=== PATIENT | female | born 1950 | race Caucasian/White ===

== ENCOUNTER → 2023-09-11 07:56 | Outpatient (REF) | payer MEDICARE, OTHER, SELFPAY ==
[2023-09-11 09:58] LABS: Vitamin D, 25-OH*** 46.8 ng/mL (30-80)
[2023-09-11 10:11] LABS: TSH Reflex To Free T4 4.11 uIU/ml (0.47-4.68)
[2023-09-11 10:31] LABS: Vitamin B12 569 pg/ml (239-931)
[2023-09-11 12:51] LABS: ALT (SGPT) 38 U/L (0-35); AST (SGOT) 37 U/L (14-36); Albumin 4.6 g/dl (3.5-5.0); Alkaline Phosphatase 90 U/L (38-126); Blood Urea Nitrogen 20 mg/dl (7-17); Carbon Dioxide 27 mmol/L (22-30); Chloride 103 mmol/L (98-107); Glucose 83 mg/dl (70-99); Magnesium 2.2 mg/dl (1.6-2.3); Potassium 4.9 mmol/L (3.5-5.1); Sodium 135 mmol/L (135-145); Total Bilirubin 0.7 mg/dl (0.2-1.3); Total Protein 7.5 g/dl (6.3-8.2); eGFR > 60.00
== END ==
LOC: REG 07:56
PROVIDERS: ATTENDING PHYSICIAN Student in an Organized Health Care Education/Training Program
DX: R25.2 Cramp and spasm (principal)
CPT/HCPCS: 36415; 80053; 82306; 82607; 83735; 84443

== ENCOUNTER → 2023-10-11 08:29 | Outpatient (REF) | payer MEDICARE, OTHER, SELFPAY ==
[2023-10-11 09:31] LABS: ALT (SGPT) 27 U/L (0-35); AST (SGOT) 32 U/L (14-36); Alkaline Phosphatase 89 U/L (38-126); Direct Bilirubin 0.2 mg/dl (0.0-0.4); Total Bilirubin 0.7 mg/dl (0.2-1.3)
== END ==
LOC: REG 08:29
PROVIDERS: ATTENDING PHYSICIAN Student in an Organized Health Care Education/Training Program
DX: R79.89 Other specified abnormal findings of blood chemistry (principal)
CPT/HCPCS: 36415; 82247; 82248; 84075; 84450; 84460

== ENCOUNTER → 2023-12-06 09:32 | Outpatient (REF) | payer MEDICARE, OTHER, SELFPAY ==
[2023-12-06 10:59] LABS: ALT (SGPT) 55 U/L (0-35); AST (SGOT) 46 U/L (14-36); Albumin 4.4 g/dl (3.5-5.0); Alkaline Phosphatase 108 U/L (38-126); Blood Urea Nitrogen 20 mg/dl (7-17); Calcium 9.9 mg/dl (8.4-10.2); Carbon Dioxide 27 mmol/L (22-30); Chloride 101 mmol/L (98-107); Glucose 102 mg/dl (70-99); Glycohemoglobin (HgbA1c) 5.9 % (4.0-5.6); HDL Cholesterol 73 mg/dl; LDL Cholesterol, Calculated 62 mg/dl; Potassium 4.5 mmol/L (3.5-5.1); Sodium 136 mmol/L (135-145); Total Bilirubin 0.7 mg/dl (0.2-1.3); Total Cholesterol 148 mg/dl (50-199); Triglyceride 67 mg/dl (10-149); Very Low Density Lipoprotein 13 mg/dl (0-30); eGFR > 60.00
== END ==
LOC: REG 09:32
PROVIDERS: ATTENDING PHYSICIAN Student in an Organized Health Care Education/Training Program
DX: Z00.00 Encounter for general adult medical examination without abnormal findings (principal); E78.00 Pure hypercholesterolemia, unspecified; R73.01 Impaired fasting glucose
CPT/HCPCS: 36415; 80053; 80061; 83036

== ENCOUNTER → 2023-12-26 06:32 | Day surgery (SDC) | payer MEDICARE, OTHER, SELFPAY | LOC: GI 06:32 | PROVIDERS: ATTENDING PHYSICIAN Specialist | DX: Z12.11 Encounter for screening for malignant neoplasm of colon (principal); D12.2 Benign neoplasm of ascending colon; D12.3 Benign neoplasm of transverse colon; K57.30 Diverticulosis of large intestine without perforation or abscess without bleeding; R19.7 Diarrhea, unspecified; Z86.010 Personal history of colon polyps | CPT/HCPCS: 45385; 45380; 88305 ==

== ENCOUNTER → 2024-01-10 15:02 | Outpatient (REF) | payer MEDICARE, OTHER, SELFPAY | LOC: WDC 15:02 | PROVIDERS: ATTENDING PHYSICIAN Student in an Organized Health Care Education/Training Program | DX: Z12.31 Encounter for screening mammogram for malignant neoplasm of breast (principal) | CPT/HCPCS: 77063; 77067 ==

== ENCOUNTER → 2024-01-28 08:06 | Outpatient (REF) | payer MEDICARE, OTHER, SELFPAY | LOC: EMG 08:06 | PROVIDERS: ATTENDING PHYSICIAN Student in an Organized Health Care Education/Training Program | DX: R25.2 Cramp and spasm (principal) | CPT/HCPCS: 95886; 95911 ==

== ENCOUNTER → 2024-02-03 10:37 | Outpatient (REF) | payer MEDICARE, OTHER, SELFPAY ==
[2024-02-03 12:46] LABS: ALT (SGPT) 32 U/L (0-35); AST (SGOT) 33 U/L (14-36); Albumin 4.4 g/dl (3.5-5.0); Alkaline Phosphatase 103 U/L (38-126); Blood Urea Nitrogen 16 mg/dl (7-17); Carbon Dioxide 28 mmol/L (22-30); Chloride 101 mmol/L (98-107); Glucose 94 mg/dl (70-99); Potassium 4.8 mmol/L (3.5-5.1); Sodium 136 mmol/L (135-145); Total Bilirubin 0.7 mg/dl (0.2-1.3); eGFR > 60.00
[2024-02-03 14:39] LABS: Lyme Antibody Screen, EIA Negative (Negative)
[2024-02-04 18:41] LABS: Syphilis/T. pallidum Ab Reflex Negative (Negative)
== END ==
LOC: REG 10:37
PROVIDERS: ATTENDING PHYSICIAN Student in an Organized Health Care Education/Training Program
DX: G62.9 Polyneuropathy, unspecified (principal); R79.89 Other specified abnormal findings of blood chemistry
CPT/HCPCS: 36415; 80053; 84155; 84165; 86618; 86780

== ENCOUNTER → 2024-03-23 13:22 | Outpatient (REF) | payer MEDICARE, OTHER, SELFPAY ==
[2024-03-23 18:56] LABS: Hepatitis C Antibody Negative (Negative)
== END ==
LOC: REG 13:22
PROVIDERS: ATTENDING PHYSICIAN Student in an Organized Health Care Education/Training Program
DX: G62.9 Polyneuropathy, unspecified (principal)
CPT/HCPCS: 36415; 86803

== ENCOUNTER → 2024-05-04 12:44 | Outpatient (REF) | payer MEDICARE, OTHER, SELFPAY | LOC: RCS 12:44 | PROVIDERS: ATTENDING PHYSICIAN Student in an Organized Health Care Education/Training Program | DX: R07.89 Other chest pain (principal) | CPT/HCPCS: 93017 ==

== ENCOUNTER → 2024-05-08 12:33 | Outpatient (REF) | payer MEDICARE, OTHER, SELFPAY | LOC: RCS 12:33 | PROVIDERS: ATTENDING PHYSICIAN Student in an Organized Health Care Education/Training Program; OTHER PHYSICIAN Internal Medicine Cardiovascular Disease | DX: R07.9 Chest pain, unspecified (principal) | CPT/HCPCS: 93017; 93350 ==

== ENCOUNTER 2024-05-12 12:10 | Day surgery (SDC) | payer MEDICARE, OTHER, SELFPAY ==
[2024-05-11 13:53] VITALS: BMI 24.3
[2024-05-11 14:13] LABS: % Basophils 0.7 % (0-2); % Eosinophils 2.9 % (0-6); % Immature Granulocytes 0.2 % (0-0.5); % Lymphocytes 43.4 % (20.5-51.1); % Monocytes 8.9 % (1.7-9.3); % Neutrophils 43.9 % (42.2-75.2); Absolute Basophils 0.1 10^3/uL (0-0.2); Absolute Eosinophils 0.3 10^3/uL (0-0.7); Absolute Lymphocytes 3.8 10^3/uL (1.2-3.4); Absolute Monocytes 0.8 10^3/uL (0.1-0.6); Absolute Neutrophils 3.8 10^3/uL (1.4-6.5); Hemoglobin 13.7 g/dL (12.0-16.0); Mean Corp Hgb Conc. 34.3 g/dL (33.0-37.0); Mean Corpuscular Hgb 31.6 pg (27.0-31.0); Mean Corpuscular Volume 92.2 fL (81.0-99.0); Mean Platelet Volume 10.6 fL (7.4-10.4); Nucleated Red Blood Cells % 0 %; Platelet Count 250 10^3/uL (130-400); Red Blood Cell Count 4.34 10^6/uL (4.20-5.40); Red Cell Dist. Width 12.9 % (11.5-14.5); White Blood Cell Count 8.7 10^3/uL (4.8-10.8)
[2024-05-11 14:28] LABS: ALT (SGPT) 24 U/L (0-35); AST (SGOT) 29 U/L (14-36); Albumin 4.7 g/dl (3.5-5.0); Alkaline Phosphatase 87 U/L (38-126); Blood Urea Nitrogen 20 mg/dl (7-17); Calcium 9.9 mg/dl (8.4-10.2); Carbon Dioxide 29 mmol/L (22-30); Chloride 102 mmol/L (98-107); Estimated Creatinine Clearance 64 ml/min; Glucose 106 mg/dl (70-99); Potassium 4.1 mmol/L (3.5-5.1); Sodium 143 mmol/L (135-145); Total Bilirubin 0.3 mg/dl (0.2-1.3); Total Protein 7.5 g/dl (6.3-8.2); eGFR > 60.00
[2024-05-12] VITALS (10 sets, daily range): BP systolic 102–148; BP diastolic 49–72
--- NOTE | 2024-05-12 17:03 | ITS.CL.CATH ---
[facility] - Catheterization
Cardiac Catheterization
Procedure Report:
CARDIAC CATHETERIZATION REPORT
Date of Procedure: 05/12/2024
Referring: Humberto Liu MD
Indication: Exertional angina with abnormal stress echocardiogram
�
HEMODYNAMIC DATA
AO: 154/70
LV: 154/14
�
LEFT VENTRICULOGRAPHY: Normal segmental wall motion with EF 62%
�
CORONARY ANGIOGRAPHY
Dominance: Right
Left Main: Normal
LAD: Mild calcification of the proximal LAD. 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 There is no evidence of atherosclerotic obstructions in the LAD system
Circumflex: Normal
RCA: Normal dominant vessel
�
Closure Device: None-the procedure was performed via the right radial artery. The Chuck's test was normal prior to the procedure.
�
Radiation (mGy): 182
DAP (cm2.Gy): 14.8
Fluoroscopy time: 2.1 minutes
�
CONCLUSIONS
1:�Systemic hypertension
2:�Normal left ventricular function with EF 62%
3. No evidence of atherosclerotic obstructions in the coronary vessels. There is mild calcification in the proximal LAD. 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 This is not considered
pathologic
4. Recommend treatment with aspirin, high intensity statin to achieve LDL less than 70 (due to coronary calcification) and will start antianginal therapy with metoprolol for possible small vessel disease
�
�
Copy to: Shameka Goldberg MD, PhD, Humberto Liu MD,
�
Humberto Liu MD, [facility], [facility]
== END 2024-05-12 19:15 | disposition home or self-care (01) ==
LOC: CATH 12:10
PROVIDERS: ATTENDING PHYSICIAN Internal Medicine Cardiovascular Disease; FAMILY PHYSICIAN Student in an Organized Health Care Education/Training Program
DX: R07.89 Other chest pain (principal); R93.1 Abnormal findings on diagnostic imaging of heart and coronary circulation; I10 Essential (primary) hypertension; Z79.82 Long term (current) use of aspirin
CPT/HCPCS: 36415; 80053; 85025; 93458; Q9967

== ENCOUNTER → 2024-06-24 09:32 | Outpatient (REF) | payer MEDICARE, OTHER, SELFPAY ==
[2024-06-24 11:45] LABS: ALT (SGPT) 26 U/L (0-35); AST (SGOT) 29 U/L (14-36); Albumin 4.7 g/dl (3.5-5.0); Alkaline Phosphatase 87 U/L (38-126); Blood Urea Nitrogen 20 mg/dl (7-17); Calcium 9.8 mg/dl (8.4-10.2); Carbon Dioxide 30 mmol/L (22-30); Chloride 100 mmol/L (98-107); Glucose 103 mg/dl (70-99); HDL Cholesterol 98 mg/dl; LDL Cholesterol, Calculated 63 mg/dl; Potassium 5.1 mmol/L (3.5-5.1); Sodium 139 mmol/L (135-145); Total Bilirubin 0.5 mg/dl (0.2-1.3); Total Cholesterol 185 mg/dl (50-199); Total Protein 7.5 g/dl (6.3-8.2); Triglyceride 121 mg/dl (10-149); Very Low Density Lipoprotein 24 mg/dl (0-30); eGFR > 60.00
== END ==
LOC: REG 09:32
PROVIDERS: ATTENDING PHYSICIAN Student in an Organized Health Care Education/Training Program
DX: E78.5 Hyperlipidemia, unspecified (principal)
CPT/HCPCS: 36415; 80053; 80061

== ENCOUNTER → 2025-01-11 12:26 | Outpatient (REF) | payer MEDICARE, OTHER, SELFPAY | LOC: WDC 12:26 | PROVIDERS: ATTENDING PHYSICIAN Student in an Organized Health Care Education/Training Program | DX: Z12.31 Encounter for screening mammogram for malignant neoplasm of breast (principal) | CPT/HCPCS: 77063; 77067 ==

== ENCOUNTER → 2025-02-26 07:54 | Outpatient (REF) | payer MEDICARE, OTHER, SELFPAY ==
[2025-02-26 09:08] LABS: ALT (SGPT) 21 U/L (0-35); AST (SGOT) 23 U/L (14-36); Albumin 4.3 g/dl (3.5-5.0); Alkaline Phosphatase 90 U/L (38-126); Blood Urea Nitrogen 27 mg/dl (7-17); Calcium 9.9 mg/dl (8.4-10.2); Carbon Dioxide 29 mmol/L (22-30); Chloride 105 mmol/L (98-107); Glucose 105 mg/dl (70-99); HDL Cholesterol 72 mg/dl; LDL Cholesterol, Calculated 109 mg/dl; Potassium 4.8 mmol/L (3.5-5.1); Sodium 140 mmol/L (135-145); Total Protein 7.3 g/dl (6.3-8.2); Very Low Density Lipoprotein 34 mg/dl (0-30); eGFR > 60.00
[2025-02-26 09:28] LABS: Glycohemoglobin (HgbA1c) 6.0 % (4.0-5.6)
== END ==
LOC: REG 07:54
PROVIDERS: ATTENDING PHYSICIAN Student in an Organized Health Care Education/Training Program
DX: Z00.00 Encounter for general adult medical examination without abnormal findings (principal); R73.01 Impaired fasting glucose; E78.00 Pure hypercholesterolemia, unspecified
CPT/HCPCS: 36415; 80053; 80061; 83036

== ENCOUNTER 2025-03-11 09:09 | Outpatient (RCR) | payer MEDICARE, OTHER, SELFPAY ==
[2025-03-11 09:23] VITALS: BP 125/55
[2025-03-11] MEDS: LEQVIO 284 MG SC (09:35)
== END 2025-03-12 09:01 | disposition home or self-care (01) ==
LOC: OID 09:09
PROVIDERS: ATTENDING PHYSICIAN Nurse Practitioner; FAMILY PHYSICIAN Student in an Organized Health Care Education/Training Program
DX: E78.5 Hyperlipidemia, unspecified (principal); I25.10 Atherosclerotic heart disease of native coronary artery without angina pectoris; Z87.891 Personal history of nicotine dependence
CPT/HCPCS: 96372; J1306

== ENCOUNTER 2025-06-14 08:58 | Outpatient (RCR) | payer MEDICARE, OTHER, SELFPAY ==
[2025-06-14 09:04] VITALS: BP 132/59
[2025-06-14] MEDS: LEQVIO 284 MG SC (09:15)
== END 2025-06-16 23:59 | disposition home or self-care (01) ==
LOC: OID 08:58
PROVIDERS: ATTENDING PHYSICIAN Nurse Practitioner; FAMILY PHYSICIAN Student in an Organized Health Care Education/Training Program
DX: E78.5 Hyperlipidemia, unspecified (principal)
CPT/HCPCS: 96372; J1306